=== PATIENT | male | born 1995 | race Caucasian/White ===

== ENCOUNTER 2017-02-16 09:05 | Outpatient (CLI) | payer BC ==
[~2017-02-16 09:05] MED LIST: ALBU17AE26 INH; FLUT1DIS3 INH
== END 2017-02-16 21:17 | disposition home or self-care (01) ==
LOC: SUS 09:05
PROVIDERS: ATTEND Internal Medicine
DX: K76.0 Fatty (change of) liver, not elsewhere classified (principal); R16.1 Splenomegaly, not elsewhere classified; R16.0 Hepatomegaly, not elsewhere classified
CPT/HCPCS: 76700-TC

== ENCOUNTER 2020-06-07 08:29 | Outpatient (CLI) | payer BC | END 2020-06-07 21:00 | disposition home or self-care (01) | LOC: SUS 08:29 | PROVIDERS: ATTEND Internal Medicine | DX: R94.5 Abnormal results of liver function studies (principal); K76.0 Fatty (change of) liver, not elsewhere classified | CPT/HCPCS: 76700-TC ==